=== PATIENT | female | born 1980 | race Caucasian/White ===

== ENCOUNTER 2021-06-03 11:48 | Emergency (ER) | payer OTHER, MEDICAID, SELFPAY ==
[2021-06-03 11:50] VITALS: BP 128/73; PULSE 68; RESP 15; TEMP 36.6; O2SAT 99; BMI 35.2
--- NOTE | 2021-06-03 11:54 | DI.RAD.S_ITS ---
PROCEDURE: XR CHEST 1V INDICATIONS: chest pain TECHNIQUE: One view of the chest was acquired. COMPARISON: None. FINDINGS: Surgical changes and devices: None. Lungs and pleura: Lungs are clear. No pleural effusions or pneumothorax. Mediastinum: Mediastinal contours appear normal. Heart size is normal. Bones and chest wall: No suspicious bony lesions. Overlying soft tissues appear unremarkable. IMPRESSION: No acute cardiopulmonary abnormality. Dictated by: Talha Godinez M.D. on 06/03/2021 at 12:32 Approved by: Talha Godinez M.D. on 06/03/2021 at 12:32
[2021-06-03 12:11] LABS: Add Manual Diff / Slide Review NO; Basophils Absolute Auto 100 /uL (0-100); Basophils Percent Auto 0.8 % (0-2); Eosinophils Absolute Auto 100 /uL (0-450); Eosinophils Percent Auto 1.5 % (2-4); Hematocrit 38.7 % (36-46); Lymphocytes Absolute Auto 1700 /uL (1100-4500); Lymphocytes Percent Auto 24.7 % (25-40); Mean Corpuscular HGB Conc 33.6 % (30-36); Mean Corpuscular Hemoglobin 28.6 PG (26-34); Monocytes Absolute Auto 500 /uL (0-900); Monocytes Percent Auto 7.8 % (3-14); Neutrophils Absolute Auto 4600 /uL (1500-7000); Neutrophils Percent Auto 65.2 % (50-75); Platelet Count 230 X10^3/uL (150-400); Red Blood Cell Count 4.55 X10^6/uL (4.0-5.2); Red Cell Distribution Width 13.4 % (11.6-14.8)
[2021-06-03 12:27] LABS: Alanine Aminotransferase 13 IU/L (<35); Albumin Globulin Ratio 1.3 (1.0-2.8); Alkaline Phosphatase 49 U/L (38-126); Aspartate Aminotransferase 21 IU/L (14-36); BUN Creatinine Ratio 15.2 (6-22); Bilirubin Total 0.5 mg/dL (0.2-1.3); Blood Urea Nitrogen 15 mg/dL (7-17); Calcium 8.7 mg/dL (8.4-10.2); Carbon Dioxide 24 mmol/L (22-32); Chloride 107 mmol/L (98-107); Creatine Kinase 64 U/L (30-135); Estimated Glomerular Filt Rate > 60 mL/min (>60); Globulin 3.1 g/dL (1.7-4.1); Glucose 96 mg/dL (70-100); HEMOLYSIS < 15 (0-50); Lipase 70 U/L (23-300); Magnesium 1.9 mg/dL (1.6-2.3); Sodium 137 mmol/L (137-145); Total Protein 7.1 g/dL (6.3-8.2)
[2021-06-03 12:37] LABS: Troponin I < 0.012 ng/mL (0.01-0.034)
[2021-06-03 12:49] VITALS: BP 132/76; PULSE 70; RESP 22; TEMP 37.1; O2SAT 100
[2021-06-03] MEDS: KETOROLAC 30 MG/ML VIAL 15 MG IM (13:27)
--- NOTE | 2021-06-03 13:46 | ED_ITS ---
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 Patient states that she works 6 days a week, is going through a divorce, has been under a lot of stress, and felt tightness in her left shoulder similar to her previous muscle spasms and then she states it became more tight and her chest on the left became tight as well with tingling and tight sensation to her left arm. She denies any nausea, vomiting, diaphoresis, altered mentation, palpitations, chest pain, chest pressure, dizziness, or other symptom. Patient states that she does not currently have a primary care provider although she used to see Dr. Marcelo and is interested in seeing her again. Patient states that she has a history of taking Zanaflex for the muscle spasms but has not had this for a long time. Patient states that her symptoms have improved since she arrived here in the emergency department. She denies any history of chest pain or cardiac disease., she denies being a smoker, using control. Related Data Home Medications Medication Instructions Recorded Confirmed tizanidine 4 mg capsule (Zanaflex) 4 mg PO Q4P #0 07/07/11 Previous Rx's Medication Instructions Recorded alprazolam 0.25 mg tablet (Xanax) 0.25 mg PO BEDTIME PRN #10 tab 06/03/21 lidocaine 5 % topical patch 1 patch TOPICAL DAILY #15 ea 06/03/21 tizanidine 2 mg tablet 2 mg PO TID PRN #60 tab 06/03/21 Allergies Allergy/AdvReac Type Severity Reaction Status Date / Time No Known Drug Allergies Allergy Verified 06/03/21 11:52 Review of Systems <VIJAY Jones - Last Filed: 06/03/21 16:39> Review of Systems Narrative: General: denies fever, chills, malaise, sweats, fatigue Head/Neck: denies headache, neck pain, dizziness Eyes: denies visual changes, eye pain Cardio: denies chest pain, palpitations, edema, endorses left arm tightness which has resolved, left shoulder and left upper chest pain Respiratory: denies dyspnea, cough, orthopnea GI: denies abdominal pain, nausea, vomiting, or diarrhea : denies dysuria, hematuria, urinary retention, frequency or incontinence MSK: denies joint pain, muscle weakness Skin: denies rash, itching, skin lesions or other Neuro: denies numbness, tingling Patient History <VIJAY Jones - Last Filed: 06/03/21 16:39> Surgical History History of third molar tooth extraction Status post delivery (01/13/06) Status post delivery (04/03/01) Status post delivery (05/03/99) Status post colposcopy (07/07/11) Status post loop electrosurgical excision procedure (LEEP) of cervix (05/24/14) Status post tubal ligation Social History Smoking Status: Unknown if ever smoked Smoking Status: Unknown if ever smoked alcohol intake frequency: holidays/special occasions only Substance Use Type: does not use Exam <VIJAY Jones - Last Filed: 06/03/21 16:39> Narrative Exam Narrative: Independently reviewed vitals signs and nursing notes. General: cooperative, comfortable, in no acute distress, well developed and well groomed Head: atraumatic, symmetrical facial expressions Neck: supple, atraumatic, without lymphadenopathy. Eyes: pupils equal round and reactive, EOMI, conjunctiva normal Nose: nares patent, no rhinorrhea Mouth/Throat: uvula midline, moist mucus membranes Cardiovascular: regular rate and rhythm, no peripheral edema, warm extremities, S1-S2 without murmur Respiratory: normal effort, able to speak in complete sentences, no audible wheezing, stridor, or rales. No retractions or tachypnea. GI: abdomen soft, nontender to palpation, nondistended, no masses, no exquisite tenderness with exam, without guarding or rebound. MSK: moves all extremities, ambulatory w/steady gait, neurovascularly intact, no weakness Skin: brisk capillary refill, no rash, no erythema Neuro: normal speech and cognition, A&O x3, normal tone Psych: mental status is grossly normal, congruent mood, normal affect, pleasant and cooperative Initial Vital Signs Initial Vital Signs: Vital Signs Temperature 97.8 F 06/03/21 11:50 Pulse Rate 68 06/03/21 11:50 Respiratory Rate 15 06/03/21 11:50 Blood Pressure 128/73 06/03/21 11:50 Pulse Oximetry 99 06/03/21 11:50 <Sanket Hamilton DO - Last Filed: 06/03/21 17:38> Initial Vital Signs Initial Vital Signs: Vital Signs Temperature 97.8 F 06/03/21 11:50 Pulse Rate 68 06/03/21 11:50 Respiratory Rate 15 06/03/21 11:50 Blood Pressure 128/73 06/03/21 11:50 Pulse Oximetry 99 06/03/21 11:50 Course <RYANNE JonesP - Last Filed: 06/03/21 16:39> Orders Ordered: ED Orders 06/03/21 11:54 XR chest 1V Stat EKG-12 Lead Stat 06/03/21 12:00 Complete Blood Count AUTO DIFF Stat Comprehensive Metabolic Panel Stat Lipase Stat Magnesium Stat Troponin & CK Cardiac Panel Stat 06/03/21 13:16 [place] [facility] [place] Discontinued Medications Ketorolac Tromethamine (Ketorolac 30 Mg/Ml Vial) 15 mg IM NOW ONE Stop: 06/03/21 13:04 Last Admin: 06/03/21 13:27 Dose: 15 mg Documented by: ATIF Vital Signs Vital signs: Vital Signs - 8 hr 06/03/21 11:50 06/03/21 12:49 Temperature 97.8 F 98.7 F Pulse Rate 68 70 Respiratory Rate 15 22 Blood Pressure 128/73 132/76 Pulse Oximetry 99 100 <Sanket Hamilton DO - Last Filed: 06/03/21 17:38> Orders Ordered: ED Orders 06/03/21 11:54 XR chest 1V Stat EKG-12 Lead Stat 06/03/21 12:00 Complete Blood Count AUTO DIFF Stat Comprehensive Metabolic Panel Stat Lipase Stat Magnesium Stat Troponin & CK Cardiac Panel Stat 06/03/21 13:16 [place] [facility] [place] Stat Discontinued Medications Ketorolac Tromethamine (Ketorolac 30 Mg/Ml Vial) 15 mg IM NOW ONE Stop: 06/03/21 13:04 Last Admin: 06/03/21 13:27 Dose: 15 mg Documented by: ATIF Vital Signs Vital signs: Vital Signs - 8 hr 06/03/21 11:50 06/03/21 12:49 Temperature 97.8 F 98.7 F Pulse Rate 68 70 Respiratory Rate 15 22 Blood Pressure 128/73 132/76 Pulse Oximetry 99 100 MDM - Chest Pain <VIJAY Jones - Last Filed: 06/03/21 16:39> Lab Data Result diagrams: 06/03/21 12:00 06/03/21 12:00 Labs: Lab Results 06/03/21 06/03/21 Range/Units 12:00 12:00 WBC 7.0 (4.5-11.0) X10^3/uL RBC 4.55 (4.0-5.2) X10^6/uL Hgb 13.0 (12.0-16.0) g/dL Hct 38.7 (36-46) % MCV 85.0 (80-100) fL MCH 28.6 (26-34) PG MCHC 33.6 (30-36) % RDW 13.4 (11.6-14.8) % Plt Count 230 (150-400) X10^3/uL Neut % (Auto) 65.2 (50-75) % Lymph % (Auto) 24.7 L (25-40) % Powell % (Auto) 7.8 (3-14) % Eos % (Auto) 1.5 L (2-4) % Baso % (Auto) 0.8 (0-2) % Neut # (Auto) 4600 (4998-0075) /uL Lymph # (Auto) 1700 (3125-7771) /uL Powell # (Auto) 500 (0-900) /uL Eos # (Auto) 100 (0-450) /uL Baso # (Auto) 100 (0-100) /uL Sodium 137 (137-145) mmol/L Potassium 4.0 (3.4-5.1) mmol/L Chloride 107 (98-107) mmol/L Carbon Dioxide 24 (22-32) mmol/L BUN 15 (7-17) mg/dL Creatinine 0.99 (0.52-1.04) mg/dL Estimated GFR > 60 (>60) mL/min BUN/Creatinine Ratio 15.2 (6-22) Glucose 96 (70-100) mg/dL Calcium 8.7 (8.4-10.2) mg/dL Magnesium 1.9 (1.6-2.3) mg/dL Total Bilirubin 0.5 (0.2-1.3) mg/dL AST 21 (14-36) IU/L ALT 13 (<35) IU/L Alkaline Phosphatase 49 (38-126) U/L Total Creatine Kinase 64 (30-135) U/L CK-MB (CK-2) TNP CK-MB (CK-2) Rel Index TNP Troponin I < 0.012 (0.01-0.034) ng/mL Total Protein 7.1 (6.3-8.2) g/dL Albumin 4.0 (3.5-5.0) g/dL Globulin 3.1 (1.7-4.1) g/dL Albumin/Globulin Ratio 1.3 (1.0-2.8) Lipase 70 (23-300) U/L Imaging Data Chest x-ray: Radiologist's Impression: PROCEDURE:? XR CHEST 1V ? INDICATIONS:? chest pain ? TECHNIQUE:? One view of the chest was acquired.? ? COMPARISON:? None. ? FINDINGS:? ? Surgical changes and devices:? None.? ? Lungs and pleura:? Lungs are clear.? No pleural effusions or pneumothorax.? ? Mediastinum:? Mediastinal contours appear normal.? Heart size is normal.? ? Bones and chest wall:? No suspicious bony lesions.? Overlying soft tissues appear unremarkable.? ? IMPRESSION:? No acute cardiopulmonary abnormality. ? ? ? Dictated by: Talha Godinez M.D. on 06/03/2021 at 12:32 ? ? Approved by: Talha Godinez M.D. on 06/03/2021 at 12:32 ? ECG Data Interpretation: EKG independently reviewed by myself and Dr. Hamilton which reveals normal sinus rhythm with regular axis and intervals. No STEMI, ST segment changes, arrhythmia, or acute ischemic changes. 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 Patient has had muscle spasms of her left shoulder and back in the same area in the past, use to take tizanidine for this. She has not seen a primary care provider for many years but used to see Dr. Marcelo, and would like to start seeing her again. Lab work was unremarkable, troponin is negative, CK was negative, no elevation in liver enzymes, no leukocytosis, chest x-ray without any acute cardiopulmonary abnormality, patient's vital signs were within normal range, normal sinus rhythm with S1-S2 no murmur. This is most likely a trapezius muscle strain and an acute exacerbation of anxiety. Patient states she is going through a divorce, works 6 days a week, has been really stressed out and has been tearful. A social work consult was placed, patient was given resources for therapist, primary care providers, and resources available under her insurance. Patient states that this was helpful, she was given a prescription of tizanidine 2 mg times 60 tabs and given for follow-up information to establish care with Dr. Marcelo or other primary care providers accepting new patients. Encourage patient to follow up accordingly, use heat, relaxation, take a day off of work, focus on mental health, calming techniques, and positive coping skills. Patient was given strict return precautions, has not had any nausea vomiting, diaphoresis, palpitations, or chest pain or pressure. Patient is appropriate and amenable to discharge home. Multiple causes of chest pain considered including AL, PE, pneumothorax, pneumonia, aortic dissection, and pleurisy. Patient reports no radiation, no diaphoresis, no provocation with exertion, and no vomiting. Vital signs are stable on repeat examination is unremarkable. Patient has been informed of results. Patient has been given strict return to ER precautions for any new or worsening symptoms. Patient understands to follow up closely with outpatient providers as instructed. Patient understands plan and agrees to discharge home. All questions and concerns answered at this time. <Sanket Hamilton, - Last Filed: 06/03/21 17:38> Lab Data Labs: Lab Results 06/03/21 06/03/21 Range/Units 12:00 12:00 WBC 7.0 (4.5-11.0) X10^3/uL RBC 4.55 (4.0-5.2) X10^6/uL Hgb 13.0 (12.0-16.0) g/dL Hct 38.7 (36-46) % MCV 85.0 (80-100) fL MCH 28.6 (26-34) PG MCHC 33.6 (30-36) % RDW 13.4 (11.6-14.8) % Plt Count 230 (150-400) X10^3/uL Neut % (Auto) 65.2 (50-75) % Lymph % (Auto) 24.7 L (25-40) % Powell % (Auto) 7.8 (3-14) % Eos % (Auto) 1.5 L (2-4) % Baso % (Auto) 0.8 (0-2) % Neut # (Auto) 4600 (6075-1251) /uL Lymph # (Auto) 1700 (8867-8887) /uL Powell # (Auto) 500 (0-900) /uL Eos # (Auto) 100 (0-450) /uL Baso # (Auto) 100 (0-100) /uL Sodium 137 (137-145) mmol/L Potassium 4.0 (3.4-5.1) mmol/L Chloride 107 (98-107) mmol/L Carbon Dioxide 24 (22-32) mmol/L BUN 15 (7-17) mg/dL Creatinine 0.99 (0.52-1.04) mg/dL Estimated GFR > 60 (>60) mL/min BUN/Creatinine Ratio 15.2 (6-22) Glucose 96 (70-100) mg/dL Calcium 8.7 (8.4-10.2) mg/dL Magnesium 1.9 (1.6-2.3) mg/dL Total Bilirubin 0.5 (0.2-1.3) mg/dL AST 21 (14-36) IU/L ALT 13 (<35) IU/L Alkaline Phosphatase 49 (38-126) U/L Total Creatine Kinase 64 (30-135) U/L CK-MB (CK-2) TNP CK-MB (CK-2) Rel Index TNP Troponin I < 0.012 (0.01-0.034) ng/mL Total Protein 7.1 (6.3-8.2) g/dL Albumin 4.0 (3.5-5.0) g/dL Globulin 3.1 (1.7-4.1) g/dL Albumin/Globulin Ratio 1.3 (1.0-2.8) Lipase 70 (23-300) U/L Discharge Plan Departure Patient Disposition: Home Clinical Impression: Acute costochondritis, Anxiety as acute reaction to exceptional stress Strain of left trapezius muscle Qualifiers: Encounter type: initial encounter Qualified Code(s): S46.812A - Strain of other muscles, fascia and tendons at shoulder and upper arm level, left arm, initial encounter Instructions: DI for Atypical Chest Pain, DI for Costochondritis, DI for Muscle Strain Activity Restrictions/Additional Instructions: *You have been diagnosed with muscle strain, anxiety related to your stressful life situations, and muscle spasms. Please take the rest of the day off, you may take tomorrow off to if your still feeling unwell. Please return to the emergency department if you started vomiting, have any worsening of your pain, sweating, chest pressure which does not improve with slow deep breathing, relaxation exercises, heat, and your medications. Please do not take more than you need of these medications which can make you very drowsy. Please call and make an appointment with Dr. Marcelo or any of the new patient providers available. *What to do: *Please continue to take your regular medications as directed. [X ] New medication prescriptions sent to your pharmacy: [[facility] ] [ ] New medication written as a paper prescription [ ] No new medications given *Please follow up with your primary care provider in 2-3 days, call for an appointment. Let them know you were seen in the Emergency Department and that we asked that you be seen for follow-up. We will electronically transmit a record of today's note if your PCP is in our system *If you do not have a primary care provider please contact [phone] to establish care with one of the [facility] primary care providers. *Return to Emergency Department if you should have any new, worsening or concerning symptoms, such as [fever greater than 101F, chills, worsening pain, persistent vomiting or other bothersome symptoms] Prescriptions: New tizanidine 2 mg tablet 2 mg PO TID PRN (Reason: muscle spasticity) Qty: 60 0RF lidocaine 5 % adhesive patch,medicated 1 patch topical DAILY Qty: 15 0RF Rx Instructions: leave on most painful area for up to 12 hrs alprazolam [Xanax] 0.25 mg tablet 0.25 mg PO BEDTIME PRN (Reason: anxiety) Qty: 10 0RF No Action tizanidine [Zanaflex] 4 MG capsule 4 mg PO Q4P Qty: 0 0RF Referrals: Bryanna Marcelo MD [Physician] - iDan Gonzales MD [Physician] - Dania Green PA-C [Non-Staff] - (She has an office here in [place] called [facility] Phone number is [phone]) <Sanket Hamilton, - Last Filed: 06/03/21 17:38> Cosign ED Attending Cosignature Attestation: Dr Hamilton Co-Sign Statement: I was available for consultation during this patient's emergency department visit. This chart is signed by myself for administrative purposes only. I did not have direct contact with this patient during this visit. They were seen independently by the APC.
== END 2021-06-03 13:28 | disposition home or self-care (01) ==
PROVIDERS: Emergency Medicine; Emergency Provider Nurse Practitioner Critical Care Medicine
DX: S46.812A Strain of other muscles, fascia and tendons at shoulder and upper arm level, left arm, initial encounter (principal); R07.9 Chest pain, unspecified; M94.0 Chondrocostal junction syndrome [Tietze]; F41.1 Generalized anxiety disorder; F43.0 Acute stress reaction; X58.XXXA Exposure to other specified factors, initial encounter
CPT/HCPCS: 36415; 71045; 80053; 82550; 83690; 83735; 84484; 85025; 93005; 96372; 99284; J1885